=== PATIENT | male | born 1980 | race Caucasian/White ===

== ENCOUNTER 2017-08-07 20:53 | Emergency (ER) | payer BC, OTHER ==
[2017-08-07 21:08] VITALS: BP 150/75
[2017-08-07] MEDS ORDERED: Ketorolac 60 MG/2 ML SDV IM ONE (21:14)
--- NOTE | 2017-08-07 21:14 | EDM.PDOC ---
ED HPI GENERAL MEDICAL PROBLEM - General Chief Complaint: Upper Extremity Injury/Pain Stated Complaint: FALL/PAIN RT SHOULDER Time Seen by Provider: 08/07/17 21:04 Source of Information: Reports: Patient History Limitations: Reports: No Limitations - History of Present Illness INITIAL COMMENTS - FREE TEXT/NARRATIVE: HISTORY AND PHYSICAL: History of present illness: Patient is a 37-year-old male who presents to the emergency room today with complaints of right shoulder pain. He slipped and fell and the ice earlier today. He states that he has a known history of full-thickness tear of the right shoulder. He had an MRI approximately one year ago and was supposed to have surgery. He states his insurance ceased and he was unable to get the surgery. He denies any numbness or tingling to the distal extremity. Denies hitting his head or any loss of consciousness. Review of systems: As per history of present illness and below otherwise all systems reviewed and negative. Past medical history: As per history of present illness and as reviewed below otherwise noncontributory. Surgical history: As per history of present illness and as reviewed below otherwise noncontributory. Social history: No reported history of drug or alcohol abuse. Family history: As per history of present illness and as reviewed below otherwise noncontributory. Physical exam: Gen.: Well-developed and well-nourished 37-year-old male. Alert and oriented. Nontoxic appearing and in no acute distress. HEENT: Atraumatic, normocephalic, pupils reactive, negative for conjunctival pallor or scleral icterus, mucous membranes moist, throat clear, neck supple, nontender, trachea midline. Lungs: Clear to auscultation, breath sounds equal bilaterally, chest nontender. Heart: S1S2, regular 8 and rhythm Abdomen: Soft, nondistended, obese, nontender. Pelvis: Stable nontender. Genitourinary: Deferred. Rectal: Deferred. Extremities: Moves all extremities per self, limited in the right shoulder does cause intense pain. Able to lift the shoulder approximately 45 from the chest wall. No scapulary or clavicle tenderness. No obvious deformity. No humerus, elbow, radial ulnar, wrist or hand involvement. Strong radial pulse. Capillary refill less than 3 seconds. Neurovascular unremarkable. Neuro: Awake, alert, oriented. Cranial nerves II through XII unremarkable. Cerebellum unremarkable. Motor and sensory unremarkable throughout. Exam nonfocal. With the patient having a known full-thickness tear of the right shoulder he is likely to need an MRI again in the future. He is aware that we do not do MRIs through the emergency room. Today we will get x-ray to make sure there are no acute fractures. He will need to follow up with the orthopedic provider for further management of his pain and injury. Sling applied with education. X-ray shows no dislocation or fracture. Patient declined the Toradol stating "I don't want anything for inflammation I want something stronger for pain". States he has been using Tylenol and ibuprofen without relief. Script for Ultram has been given, #15, no refill. Referral made for orthopedic follow-up. Patient voices understanding and is agreeable to plan of care. He denies any further questions at this time. Diagnostics: X-ray Therapeutics: Toradol (he declined) Impression: Right shoulder injury Plan: 1. Please take the medication as prescribed. May cause drowsiness so do not take it while driving or needing to be functioning at work. He may take Tylenol and/or ibuprofen as needed for breakthrough pain. Rest, ice, elevate the extremity. Use a sling till you follow up with orthopedics. 2. Today's x-ray showed no fracture. With your history of tendon/ligament tear, you may need a MRI in the near future for futher diagnosis. Follow-up with the orthopedic doctor as we discussed. Return to the ED as needed and as discussed. Definitive disposition and diagnosis as appropriate pending reevaluation and review of above. Onset: Today Duration: Chronic Location: Reports: Upper Extremity, Right right shoulder Pain Score (Numeric/FACES): 8 - Related Data Allergies Allergy/AdvReac Type Severity Reaction Status Date / Time No Known Allergies Allergy Verified 08/07/17 21:05 Home Meds: Home Meds Albuterol [Proair HFA] 2 puff INH Q4HR PRN #1 inhaler 03/02/15 [Rx] Azithromycin [Zithromax] 250 mg PO DAILY #6 tablet 03/02/15 [Rx] Homatropine/HYDROcodone [Hycodan 5-1.5 MG/5 ML Syrup] 5 ml PO Q4H PRN #120 ml [Rx] Past Medical History - Past Health History Medical/Surgical History: Denies Medical/Surgical History Social & Family History - Tobacco Use Smoking Status *Q: Current Every Day Smoker Years of Tobacco use: 18 Review of Systems - Review of Systems Review Of Systems: ROS reveals no pertinent complaints other than HPI. ED EXAM, GENERAL - Physical Exam Exam: See Below (See dictation) Course - Vital Signs Last Recorded V/S: Last Vital Signs Temp 97.9 F 08/07/17 21:05 Pulse 102 H 08/07/17 21:05 Resp 18 08/07/17 21:05 BP 150/75 H 08/07/17 21:05 Pulse Ox 97 08/07/17 21:05 - Orders/Labs/Meds Orders: Active Orders 24 hr Category Date Time Status Shoulder Comp Rt [CR] Stat Exams 08/07/17 21:14 Taken DME for Discharge [COMM] Stat Oth 08/07/17 21:46 Ordered Meds: Medications Discontinued Medications Generic Name Dose Route Start Last Admin Trade Name Freq PRN Reason Stop Dose Admin Ketorolac Tromethamine 60 mg 08/07/17 21:14 08/07/17 21:35 Toradol IM 08/07/17 21:15 Not Given ONETIME ONE Departure - Departure Time of Disposition: 21:56 Disposition: Home, Self-Care 01 Clinical Impression: Right shoulder injury Qualifiers: Encounter type: initial encounter Qualified Code(s): S49.91XA - Unspecified injury of right shoulder and upper arm, initial encounter - Discharge Information Referrals: PCP,None [Primary Care Provider] - Forms: ED Department Discharge Additional Instructions: My general discharge The following information is given to patients seen in the emergency department who are being discharged to home. This information is to outline your options for follow-up care. We provide all patients seen in our emergency department with a follow-up referral. The need for follow-up, as well as the timing and circumstances, are variable depending upon the specifics of your emergency department visit. If you don't have a primary care physician on staff, we will provide you with a referral. We always advise you to contact your personal physician following an emergency department visit to inform them of the circumstance of the visit and for follow-up with them and/or the need for any referrals to a consulting specialist. The emergency department will also refer you to a specialist when appropriate. This referral assures that you have the opportunity for follow-up care with a specialist. All of these measure are taken in an effort to provide you with optimal care, which includes your follow-up. Under all circumstances we always encourage you to contact your private physician who remains a resource for coordinating your care. When calling for follow-up care, please make the office aware that this follow-up is from your recent emergency room visit. If for any reason you are refused follow-up, please contact the [facility] Emergency Department at and asked to speak to the emergency department charge nurse. [facility] Specialty Care - Orthopedic Clinic Professional Building [address] [place] [address], [address] [place] [address] 1. Please take the medication as prescribed. May cause drowsiness so do not take it while driving or needing to be functioning at work. He may take Tylenol and/or ibuprofen as needed for breakthrough pain. Rest, ice, elevate the extremity. Use a sling till you follow up with orthopedics. 2. Today's x-ray showed no fracture. With your history of tendon/ligament tear, you may need a MRI in the near future for futher diagnosis. Follow-up with the orthopedic doctor as we discussed. Return to the ED as needed and as discussed. - My Orders Last 24 Hours: My Active Orders 08/07/17 21:14 Shoulder Comp Rt [CR] Stat 08/07/17 21:46 DME for Discharge [COMM] Stat - Assessment/Plan Last 24 Hours: My Active Orders 08/07/17 21:14 Shoulder Comp Rt [CR] Stat 08/07/17 21:46 DME for Discharge [COMM] Stat
--- NOTE | 2017-08-10 12:57 | CR ---
EXAM DATE: 08/07/17 PATIENT'S AGE: 37 Patient: WILLIE LEDEZMA Facility: [place], [place] Site . Site : 1980 Study: XRay Shoulder Right [id number]/26/2018 10:02:33 PM Ordering Physician: Doctor Taylor Final Report: HISTORY: Pain. FINDINGS: Three views of the right shoulder demonstrates normal alignment. No soft tissue calcification, fracture or dislocation seen. The acromion has a slightly curved type 2 configuration. IMPRESSION: No fracture or dislocation within the right shoulder. Dictated by Zeenat Schwartz MD @ 08/07/2017 10:31:16 PM Dictated by: Zeenat Schwartz MD @ 08/07/2017 22:31:23 (Electronic Signature) Report Signed by Proxy. MTDElicia
== END 2017-08-07 22:05 | disposition home or self-care (01) ==
LOC: MW.ED 20:53
DX: S49.91XA Unspecified injury of right shoulder and upper arm, initial encounter (principal); W00.0XXA Fall on same level due to ice and snow, initial encounter
CPT/HCPCS: 73030; 99283; A4566; 99284

== ENCOUNTER 2019-03-12 22:24 | Emergency (ER) | payer SELFPAY ==
--- NOTE | 2019-03-12 22:44 | EDM.PDOC ---
ED HPI GENERAL MEDICAL PROBLEM - General Chief Complaint: ENT Problem Stated Complaint: PAIN IN EAR Time Seen by Provider: 03/12/19 22:26 Source of Information: Reports: Patient History Limitations: Reports: No Limitations - History of Present Illness INITIAL COMMENTS - FREE TEXT/NARRATIVE: HISTORY AND PHYSICAL: History of present illness: Patient is a 38 showed male who presents to the emergency room today with complaints of left ear pain 1 week. He denies any fever, chills, respiratory symptoms. Denies any GI or symptoms. Review of systems: As per history of present illness and below otherwise all systems reviewed and negative. Past medical history: As per history of present illness and as reviewed below otherwise noncontributory. Surgical history: As per history of present illness and as reviewed below otherwise noncontributory. Social history: See social history for further information Family history: As per history of present illness and as reviewed below otherwise noncontributory. Physical exam: General: Developed and well-nourished 38 showed male. Alert and oriented. Nontoxic appearing and in no acute distress. HEENT: Atraumatic, normocephalic, pupils equal and reactive bilaterally, negative for conjunctival pallor or scleral icterus, mucous membranes moist, right TM normal, left TM erythematous with dull light reflex and no bulging, throat clear, neck supple, nontender, trachea midline. No drooling or trismus noted. No meningeal signs. No hot potato voice noted. Lungs: Clear to auscultation, breath sounds equal bilaterally, chest nontender. Heart: S1S2, regular rate and rhythm without overt murmur Abdomen: Soft, nondistended, nontender. Skin: Intact, warm, dry. No lesions or rashes noted. Extremities: Atraumatic, moves all extremities per self without difficulty or deficits, negative for cords or calf pain. Neurovascular unremarkable. Neuro: Awake, alert, oriented. Cranial nerves II through XII unremarkable. Cerebellum unremarkable. Motor and sensory unremarkable throughout. Exam nonfocal. Notes: Supportive care measures were reviewed and discussed. Voices understanding and is agreeable to plan of care. Denies any further questions or concerns at this time. Diagnostics: None Therapeutics: Augmentin, Spring Prescription: Augmentin Impression: Otitis Media, Left Plan: 1. Avoid placing anything in the ear canal. Take antibiotic as prescribed. 2. Tylenol and/or ibuprofen as needed for pain management. 3. Follow-up with primary care provider and or clearing house clerk as we discussed. Return to the ED as needed and as discussed. Definitive disposition and diagnosis as appropriate pending reevaluation and review of above. left ear Pain Score (Numeric/FACES): 7 - Related Data Allergies Allergy/AdvReac Type Severity Reaction Status Date / Time No Known Allergies Allergy Verified 03/12/19 22:33 Home Meds: Home Meds metFORMIN [Glucophage] 500 mg PO BID 03/12/19 [History] Past Medical History - Past Health History Medical/Surgical History: Denies Medical/Surgical History HEENT History: Reports: None Cardiovascular History: Reports: None Respiratory History: Reports: None Gastrointestinal History: Reports: None Genitourinary History: Reports: Renal Calculus Musculoskeletal History: Reports: None Neurological History: Reports: None Psychiatric History: Reports: None Endocrine/Metabolic History: Reports: None Hematologic History: Reports: None Immunologic History: Reports: None Oncologic (Cancer) History: Reports: None Dermatologic History: Reports: None - Infectious Disease History Infectious Disease History: Reports: None - Past Surgical History Head Surgeries/Procedures: Reports: None Male Surgical History: Reports: Renal Calculus Social & Family History - Family History Family Medical History: Noncontributory - Caffeine Use Caffeine Use: Reports: Energy Drinks ED ROS ENT - Review of Systems Review Of Systems: ROS reveals no pertinent complaints other than HPI. ED EXAM, ENT - Physical Exam Exam: See Below (See dictation) Course - Vital Signs Last Recorded V/S: Last Vital Signs Temp 96.8 F 03/12/19 22:30 Pulse 81 03/12/19 22:30 Resp 17 03/12/19 22:30 BP 126/81 03/12/19 22:30 Pulse Ox 97 03/12/19 22:30 Departure - Departure Time of Disposition: 22:44 Disposition: Home, Self-Care 01 Clinical Impression: Otitis media Qualifiers: Otitis media type: suppurative Chronicity: acute Laterality: left Recurrence: non-recurrent Spontaneous tympanic membrane rupture: without spontaneous rupture Qualified Code(s): H66.002 - Acute suppurative otitis media without spontaneous rupture of ear drum, left ear - Discharge Information Instructions: Otitis Media, Adult, [id number] Referrals: PCP,None [Primary Care Provider] - Additional Instructions: The following information is given to patients seen in the emergency department who are being discharged to home. This information is to outline your options for follow-up care. We provide all patients seen in our emergency department with a follow-up referral. The need for follow-up, as well as the timing and circumstances, are variable depending upon the specifics of your emergency department visit. If you don't have a primary care physician on staff, we will provide you with a referral. We always advise you to contact your personal physician following an emergency department visit to inform them of the circumstance of the visit and for follow-up with them and/or the need for any referrals to a consulting specialist. The emergency department will also refer you to a specialist when appropriate. This referral assures that you have the opportunity for follow-up care with a specialist. All of these measure are taken in an effort to provide you with optimal care, which includes your follow-up. Under all circumstances we always encourage you to contact your private physician who remains a resource for coordinating your care. When calling for follow-up care, please make the office aware that this follow-up is from your recent emergency room visit. If for any reason you are refused follow-up, please contact the [facility] Emergency Department at and asked to speak to the emergency department charge nurse. [facility] Primary Care [address] [place] [id number] [place] [address] 1. Avoid placing anything in the ear canal. Take antibiotic as prescribed. 2. Tylenol and/or ibuprofen as needed for pain management. 3. Follow-up with primary care provider and or clearing house clerk as we discussed. Return to the ED as needed and as discussed.
[2019-03-12] MEDS ORDERED: Acetaminophen/HYDROcodone 325-5 MG Tab PO ONE (22:46)
[2019-03-12] MEDS ORDERED: Amoxicillin/Clavulanate K 875-125 MG Tab PO ONE (22:46)
[2019-03-12 23:17] VITALS: BP 130/68
== END 2019-03-12 23:03 | disposition home or self-care (01) ==
LOC: MW.ED 22:24
DX: H66.002 Acute suppurative otitis media without spontaneous rupture of ear drum, left ear (principal)
CPT/HCPCS: 99283; A9270

== ENCOUNTER 2019-03-21 00:51 | Emergency (ER) | payer SELFPAY ==
[2019-03-21 01:02] VITALS: BP 153/72; PULSE 80
[2019-03-21] MEDS ORDERED: Ketorolac 60 MG/2 ML SDV IM ONE (01:02)
--- NOTE | 2019-03-21 01:05 | EDM.PDOC ---
ED HPI GENERAL MEDICAL PROBLEM - General Chief Complaint: ENT Problem Stated Complaint: DOUBLE EAR INFECTION Time Seen by Provider: 03/21/19 01:05 - History of Present Illness INITIAL COMMENTS - FREE TEXT/NARRATIVE: HISTORY AND PHYSICAL: History of present illness: Patient 38-year-old white male presents with a concern of bilateral ear pain is recently diagnosed with otitis media he was delayed in getting his antibiotics but did get them filled and is currently on Augmentin. There is no fever chills nausea vomiting or other complaints Review of systems: As per history of present illness and below otherwise all systems reviewed and negative. Past medical history: As per history of present illness and as reviewed below otherwise noncontributory. Surgical history: As per history of present illness and as reviewed below otherwise noncontributory. Social history: No reported history of drug or alcohol abuse. Family history: As per history of present illness and as reviewed below otherwise noncontributory. Physical exam: HEENT: Atraumatic, normocephalic, pupils reactive, negative for conjunctival pallor or scleral icterus, mucous membranes moist, throat clear, neck supple, nontender, trachea midline. TMs are injected bilaterally with absent light reflex left greater than right Lungs: Clear to auscultation, breath sounds equal bilaterally, chest nontender. Heart: S1S2, regular, negative for clicks, rubs, or JVD. Abdomen: Soft, nondistended, nontender. Negative for masses or hepatosplenomegaly. Negative for costovertebral tenderness. Pelvis: Stable nontender. Genitourinary: Deferred. Rectal: Deferred. Extremities: Atraumatic, negative for cords or calf pain. Neurovascular unremarkable. Neuro: Awake, alert, oriented. Cranial nerves II through XII unremarkable. Cerebellum unremarkable. Motor and sensory unremarkable throughout. Exam nonfocal. Diagnostics: None Therapeutics: Toradol 60 mg IM Impression: #1 bilateral otalgia #2 bilateral otitis media Definitive disposition and diagnosis as appropriate pending reevaluation and review of above. Treatments MANAGEMENT ARCHITECT: Reports: NSAIDS bilateral ear Pain Score (Numeric/FACES): 8 - Related Data Allergies Allergy/AdvReac Type Severity Reaction Status Date / Time No Known Allergies Allergy Verified 03/12/19 22:33 Home Meds: Home Meds metFORMIN [Glucophage] 500 mg PO BID 03/12/19 [History] Past Medical History - Past Health History Medical/Surgical History: Denies Medical/Surgical History HEENT History: Reports: None Cardiovascular History: Reports: None Respiratory History: Reports: None Gastrointestinal History: Reports: None Genitourinary History: Reports: Renal Calculus Musculoskeletal History: Reports: None Neurological History: Reports: None Psychiatric History: Reports: None Endocrine/Metabolic History: Reports: None Other Endocrine/Metabolic History: takes metformin Hematologic History: Reports: None Immunologic History: Reports: None Oncologic (Cancer) History: Reports: None Dermatologic History: Reports: None - Infectious Disease History Infectious Disease History: Reports: None - Past Surgical History Head Surgeries/Procedures: Reports: None Male Surgical History: Reports: Renal Calculus Social & Family History - Family History Family Medical History: Noncontributory - Caffeine Use Caffeine Use: Reports: Energy Drinks ED ROS GENERAL - Review of Systems Review Of Systems: ROS reveals no pertinent complaints other than HPI. ED EXAM, GENERAL - Physical Exam Exam: See Below (See dictation) Course - Vital Signs Last Recorded V/S: Last Vital Signs Temp 36.0 C 03/21/19 00:51 Pulse 80 03/21/19 00:51 Resp 18 03/21/19 00:51 BP 153/72 H 03/21/19 00:51 Pulse Ox 95 03/21/19 00:51 - Orders/Labs/Meds Meds: Medications Discontinued Medications Generic Name Dose Route Start Last Admin Trade Name Gray PRN Reason Stop Dose Admin Ketorolac Tromethamine 60 mg 03/21/19 01:02 Toradol IM 03/21/19 01:03 ONETIME ONE Departure - Departure Time of Disposition: 01:04 Disposition: Home, Self-Care 01 Condition: Good Clinical Impression: Otitis media, Otalgia of both ears - Discharge Information Additional Instructions: The following information is given to patients seen in the emergency department who are being discharged to home. This information is to outline your options for follow-up care. We provide all patients seen in our emergency department with a follow-up referral. The need for follow-up, as well as the timing and circumstances, are variable depending upon the specifics of your emergency department visit. If you don't have a primary care physician on staff, we will provide you with a referral. We always advise you to contact your personal physician following an emergency department visit to inform them of the circumstance of the visit and for follow-up with them and/or the need for any referrals to a consulting specialist. The emergency department will also refer you to a specialist when appropriate. This referral assures that you have the opportunity for followup care with a specialist. All of these measure are taken in an effort to provide you with optimal care, which includes your followup. Under all circumstances we always encourage you to contact your private physician who remains a resource for coordinating your care. When calling for followup care, please make the office aware that this follow-up is from your recent emergency room visit. If for any reason you are refused follow-up, please contact the [facility] emergency department at and asked to speak to the emergency department charge nurse. Augmentin as prescribed Ultram as prescribed follow-up primary medical doctor as needed as discussed and return as needed
== END 2019-03-21 01:24 | disposition home or self-care (01) ==
LOC: MW.ED 00:51
DX: H66.93 Otitis media, unspecified, bilateral (principal); H92.03 Otalgia, bilateral; Z79.84 Long term (current) use of oral hypoglycemic drugs
CPT/HCPCS: 99282

== ENCOUNTER 2019-04-01 00:02 | Emergency (ER) | payer SELFPAY ==
[2019-04-01 00:16] VITALS: BP 129/73; PULSE 84
[2019-04-01] MEDS ORDERED: Ketorolac 60 MG/2 ML SDV IM ONE (00:21)
--- NOTE | 2019-04-01 00:26 | EDM.PDOC ---
ED HPI GENERAL MEDICAL PROBLEM - General Chief Complaint: ENT Problem Stated Complaint: PT HAS EAR INFECTION Time Seen by Provider: 04/01/19 00:13 - History of Present Illness INITIAL COMMENTS - FREE TEXT/NARRATIVE: HISTORY AND PHYSICAL: History of present illness: Patient is a 38-year-old male who presents with bilateral ear pain that has been ongoing since the end of February. He was seen here March 12 and diagnosed with bilateral otitis media and placed on Augmentin and he delayed getting the prescription filled and did complete the course of therapy and actually represented here on March 21 with persistent pain and was advised to finish the Augmentin therapy. He also went to an urgent care in [place] due to the persistent pain and concerns and he was placed on Levaquin and he is saying that that is not working. He has lot of pressure pain in his ears but no drainage and no other systemic complaints. He has not followed up with primary care as he said he could not get an appointment in our clinic and he has not followed up with ENT Review of systems: As per history of present illness and below otherwise all systems reviewed and negative. Past medical history: As per history of present illness and as reviewed below otherwise noncontributory. Surgical history: As per history of present illness and as reviewed below otherwise noncontributory. Social history: No reported history of drug or alcohol abuse. Family history: As per history of present illness and as reviewed below otherwise noncontributory. Physical exam: General: Well-developed well-nourished mildly overweight man who is nontoxic and vital signs are noted by me HEENT: Atraumatic, normocephalic, pupils reactive, negative for conjunctival pallor or scleral icterus, mucous membranes moist, throat clear, neck supple, nontender, trachea midline. Light reflexes present bilaterally but slightly diminished on the left and both TMs are still very injected left greater than right. There is no cervical adenopathy or nuchal rigidity and no mastoid tenderness or erythema Lungs: Clear to auscultation, breath sounds equal bilaterally, chest nontender. Heart: S1S2, regular, negative for clicks, rubs, or JVD. Abdomen: Soft, nondistended, nontender. Negative for masses or hepatosplenomegaly. Negative for costovertebral tenderness. Pelvis: Deferred Genitourinary: Deferred. Rectal: Deferred. Extremities: Atraumatic, negative for cords or calf pain. Neurovascular unremarkable. Neuro: Awake, alert, oriented. Cranial nerves II through XII unremarkable. Cerebellum unremarkable. Motor and sensory unremarkable throughout. Exam nonfocal. Diagnostics: [] Therapeutics: Toradol IM I will change the patient's antibiotics to Ceftin ear and give him a few Tylenol with codeine for pain management. Impression: Persistent bilateral otitis media Definitive disposition and diagnosis as appropriate pending reevaluation and review of above. bilateral ear Pain Score (Numeric/FACES): 10 - Related Data Allergies Allergy/AdvReac Type Severity Reaction Status Date / Time No Known Allergies Allergy Verified 03/21/19 01:47 Home Meds: Home Meds Levofloxacin 500 mg PO DAILY 04/01/19 [History] Past Medical History - Past Health History Medical/Surgical History: Denies Medical/Surgical History HEENT History: Reports: None Cardiovascular History: Reports: None Respiratory History: Reports: None Gastrointestinal History: Reports: None Genitourinary History: Reports: Renal Calculus Musculoskeletal History: Reports: None Neurological History: Reports: None Psychiatric History: Reports: None Endocrine/Metabolic History: Reports: None Other Endocrine/Metabolic History: takes metformin Hematologic History: Reports: None Immunologic History: Reports: None Oncologic (Cancer) History: Reports: None Dermatologic History: Reports: None - Infectious Disease History Infectious Disease History: Reports: None - Past Surgical History Head Surgeries/Procedures: Reports: None Male Surgical History: Reports: Renal Calculus Social & Family History - Family History Family Medical History: Noncontributory - Tobacco Use Smoking Status *Q: Current Every Day Smoker Years of Tobacco use: 22 Packs/Tins Daily: 1 - Caffeine Use Caffeine Use: Reports: Energy Drinks - Recreational Drug Use Recreational Drug Use: No ED ROS GENERAL - Review of Systems Review Of Systems: ROS reveals no pertinent complaints other than HPI. ED EXAM, GENERAL - Physical Exam Exam: See Below (see dictation) Course - Vital Signs Last Recorded V/S: Last Vital Signs Temp 36.6 C 04/01/19 00:13 Pulse 84 04/01/19 00:13 Resp 18 04/01/19 00:13 BP 129/73 04/01/19 00:13 Pulse Ox 94 L 04/01/19 00:13 - Orders/Labs/Meds Orders: Active Orders 24 hr Category Date Time Status Ketorolac [Toradol] Med 04/01/19 00:21 Once 60 mg IM ONETIME ONE Medication Orders Ketorolac Tromethamine (Toradol) 60 mg IM ONETIME ONE Stop: 04/01/19 00:22 Meds: Medications Generic Name Dose Route Start Last Admin Trade Name Gray PRN Reason Stop Dose Admin Ketorolac Tromethamine 60 mg 04/01/19 00:21 Toradol IM 04/01/19 00:22 ONETIME ONE Departure - Departure Time of Disposition: 00:24 Disposition: Home, Self-Care 01 Condition: Good Clinical Impression: Otalgia of both ears Otitis media Qualifiers: Otitis media type: unspecified Chronicity: subacute Qualified Code(s): H66.90 - Otitis media, unspecified, unspecified ear - Discharge Information Referrals: PCP,None [Primary Care Provider] - Bill Blackburn MD [Ordering Only Provider] - Additional Instructions: The following information is given to patients seen in the emergency department who are being discharged to home. This information is to outline your options for follow-up care. We provide all patients seen in our emergency department with a follow-up referral. The need for follow-up, as well as the timing and circumstances, are variable depending upon the specifics of your emergency department visit. If you don't have a primary care physician on staff, we will provide you with a referral. We always advise you to contact your personal physician following an emergency department visit to inform them of the circumstance of the visit and for follow-up with them and/or the need for any referrals to a consulting specialist. The emergency department will also refer you to a specialist when appropriate. This referral assures that you have the opportunity for followup care with a specialist. All of these measure are taken in an effort to provide you with optimal care, which includes your followup. Under all circumstances we always encourage you to contact your private physician who remains a resource for coordinating your care. When calling for followup care, please make the office aware that this follow-up is from your recent emergency room visit. If for any reason you are refused follow-up, please contact the [facility] emergency department at and ask to speak to the emergency department charge nurse. [facility] Primary care- Internal Medicine and Family [place] [phone] The switch her antibiotic to the new one that I prescribed cefdinir and continue to use [id number] ibuprofen and Tylenol for pain during the day and only take the Tylenol with Codeine when you're at home at nighttime. Please use [id number] antihistamines such as Claritin and Hilda or Zyrtec and you're on the plain tomorrow as this may help to keep your ears from pressurizing. Please call and schedule a follow-up appointment with one of our clinic providers or within ENT specialist such as Dr. Blackburn in [place] or with an ENT back at home. Return to ER as needed and as discussed - My Orders Last 24 Hours: My Active Orders 04/01/19 00:21 Ketorolac [Toradol] 60 mg IM ONETIME ONE - Assessment/Plan Last 24 Hours: My Active Orders 04/01/19 00:21 Ketorolac [Toradol] 60 mg IM ONETIME ONE
== END 2019-04-01 00:59 | disposition home or self-care (01) ==
LOC: MW.ED 00:02
DX: H66.93 Otitis media, unspecified, bilateral (principal); F17.210 Nicotine dependence, cigarettes, uncomplicated
CPT/HCPCS: 96372; 99282; J1885